=== PATIENT | male | born 1950 | race Caucasian/White ===

== ENCOUNTER 2020-06-04 09:33 | Outpatient (REF) | payer BC, SELFPAY ==
--- NOTE | 2020-06-04 15:00 | MHC.AU.P13 ---
Adult Audiological Evaluation Date of Visit: 06/04/20 Reason for Appointment: Audiological evaluation to monitor the status of Mr. Gregory's hearing loss. He denies any significant changes to his hearing or medical history. Does patient feel they have a hearing loss?: Yes If Yes, Which Ear?: Both Ears Has hearing been tested previously?: Yes Previous Hearing Test Results: [facility] [place], 12/15/2016- mild to moderate high-frequency hearing bilaterally. Medical History: Medical History: Unremarkable Medical History Otoscopy: Right Ear: Unremarkable Left Ear: Unremarkable Tympanometry: Tympanometry performed due to: To assess integrity of the middle ear system Right Ear: Normal Middle Ear System (Type A) Left Ear: Normal Middle Ear System (Type A) Hearing Evaluation: Transducer(s) Used: Insert Earphones, Bone Conduction Method: Conventional Audiometry Stimuli Used: Pure Tones Right Ear: Description of Hearing: Normal hearing from 250-1000 Hz, sloping to a mild sensorineural hearing loss from 4038-3396 Hz. Left Ear: Description of Hearing: Normal hearing from 250-1500 Hz, sloping to a mild to moderate sensorineural hearing loss from 6874-1364 Hz. Speech Recognition Threshold (SRT): Method Used: Monitored Live Voice Stimuli Used: Spondee Words Right Ear: 15 dBHL Left Ear: 15 dBHL Word Discrimination: Method: Recorded Lists Word Lists Used: NU-6 Right Ear: 100% at 55 dBHL Left Ear: 100% at 55 dBHL QuickSIN: 0 dB SNR loss at 70 dBHL binaurally, indicating normal speech understanding abilities in the presence of background noise. Comparison: Compared to the most recent evaluation: Hearing is stable. Recommendations: Audiological re-evaluation in one year. Mr. Gregory is a borderline candidate for amplification. He does not feel that hearing aids are necessary at this time. Diagnosis: Primary Diagnosis: H90.3 Bilateral Sensorineural Hearing Loss Services Performed: Services Performed: Comprehensive Audiological Evaluation (CPT 16189) Tympanometry (CPT 86115) Unlisted Otorhinolaryngological Service or Procedure (CPT 42459) Signature: Provider: Geoff Shaw, [facility]
== END 2020-06-04 09:34 | disposition home or self-care (01) ==
LOC: HO.SH 09:33
PROVIDERS: Visit Provider Internal Medicine Endocrinology, Diabetes & Metabolism
DX: H90.3 Sensorineural hearing loss, bilateral (principal)
CPT/HCPCS: 92557; 92567; 92700